=== PATIENT | male | born 1975 ===

== ENCOUNTER 2020-09-04 05:50 | Day surgery (SDC) | payer OTHER ==
[~2020-09-04 05:50] MED LIST: LIPITOR PO; OMEGA 3 1,0001 EACH PO
[2020-09-04] MEDS ORDERED: PERCOCET 5-3251 EACH PO (10:07)
[2020-09-04] MEDS ORDERED: ALEVE220 M1 PO (10:07)
[2020-09-04] MEDS ORDERED: DUI500 PO (10:07)
== END 2020-09-04 14:00 | disposition home or self-care (01) ==
LOC: CIR.AMB 05:50
PROVIDERS: ATTEND Orthopaedic Surgery
DX: S86.012A Strain of left Achilles tendon, initial encounter (principal); Z20.822 Contact with and (suspected) exposure to COVID-19